=== PATIENT | female | born 1990 ===

== ENCOUNTER → 2020-01-06 08:06 | Outpatient (BNVA) | payer OTHER, SELFPAY | PROVIDERS: PCP Internal Medicine; Referring Provider Internal Medicine; Visit Provider Obstetrics & Gynecology | DX: Z76.89 Persons encountering health services in other specified circumstances (principal) ==

== ENCOUNTER 2020-02-16 14:49 | Outpatient (REF) | payer OTHER, SELFPAY ==
[2020-02-19 15:36] LABS: HPV mRNA E6/E7 rflx Not Detected (Not Detected)
== END 2020-02-16 14:50 | disposition home or self-care (01) ==
LOC: HO.LAB 14:49
PROVIDERS: Visit Provider Obstetrics & Gynecology
DX: Z01.419 Encounter for gynecological examination (general) (routine) without abnormal findings (principal); Z97.5 Presence of (intrauterine) contraceptive device
CPT/HCPCS: 87624; 87625; 88142

== ENCOUNTER 2021-06-15 14:38 | Outpatient (REF) | payer OTHER, SELFPAY ==
[2021-06-16 05:29] LABS: CT PCR NOT DETECTED (Not Detect.); NG PCR NOT DETECTED (Not Detect.)
== END 2021-06-15 14:39 | disposition home or self-care (01) ==
LOC: HO.LAB 14:38
PROVIDERS: PCP Internal Medicine; Visit Provider Advanced Practice Midwife
DX: Z01.411 Encounter for gynecological examination (general) (routine) with abnormal findings (principal); N39.0 Urinary tract infection, site not specified; Z20.2 Contact with and (suspected) exposure to infections with a predominantly sexual mode of transmission
CPT/HCPCS: 81025; 87491; 87591

== ENCOUNTER → 2021-07-26 14:31 | Outpatient (BNVA) | payer OTHER, SELFPAY | PROVIDERS: PCP Internal Medicine; Visit Provider Advanced Practice Midwife | DX: Z30.433 Encounter for removal and reinsertion of intrauterine contraceptive device (principal); R10.2 Pelvic and perineal pain | CPT/HCPCS: 58301; 81025 ==

== ENCOUNTER → 2024-05-06 14:12 | Outpatient (BNVA) | payer OTHER, SELFPAY | PROVIDERS: PCP Internal Medicine; Visit Provider Internal Medicine ==

== ENCOUNTER 2024-05-26 13:02 | Outpatient (REF) | payer OTHER, SELFPAY ==
--- NOTE | ~2024-05-26 | CT_ITS ---
EXAMINATION: CT HEAD WITHOUT CONTRAST CLINICAL INFORMATION: Concussion with loss of consciousness status unknown. Head trauma. COMPARISON: None available. TECHNIQUE: Contiguous axial imaging was performed from the skull base to vertex without intravenous administration of contrast. This CT examination was performed using dose optimization techniques as appropriate, variously including the following: *Automated exposure control *Adjustment of mA and/or kV according to patient size (this includes techniques or standardized protocols for targeted exams where dose is matched to indication/reason for exam; i.e. extremities or head) *Use of iterative reconstruction technique FINDINGS: There is no evidence of intracranial hemorrhage or extra-axial fluid collection. There is no mass effect, or edema. No CT evidence of acute territorial infarct. Ventricles, sulci, and cisterns are normal in size and configuration for patient age. No hydrocephalus. No midline shift. Negative hyperdense MCA sign. Negative insular ribbon sign. No significant white matter abnormality. 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 Normal pituitary. Mild ossification of the anterior falx. Globes and orbital contents image normally. No extracranial soft tissue abnormalities. The paranasal sinuses, mastoid air cells, and tympanic cavities are normally aerated. No suspicious bony abnormalities. There are no acute fractures evident. CT/CT head/brain wo IV con IMPRESSION: No acute intracranial pathology. No fracture evident. Electronically signed by: Mani Massey MD 05/26/2024 03:29 PM MALIK
--- OUTSIDE RECORDS SUMMARY | 2024-05-26 14:51 | XMS_ITS | Clinical Summary ---
Author Organization [facility] Address [address] [place] [id number] Phone Care Team Providers Care Patient Representative Name Role Phone Ryan Yao Primary Care Provider [phone] Immunizations Immunization Administration Dates Next Due DTP 03/10/1993, 0,03/01/1989,1988,1988 Hep B, ped/adol 03/19/2001,11/09/2000,08/02/1999 Hib (PRP-T) 11/21/1989 MMR 08/02/1999,08/23/1989 OPV 03/10/1993, 0,1988,1988 Td (adult) (MBL), 2 Lf tetan us toxoid, PF, adsorbed 08/02/1999 Varicella 01/18/1996 Family History Relation Name Status Comments Father Alive Father: Asthma, Allergies Mother Alive Mother: Anemia Other uncle: Sudden d eath/CT under age 55 Sister Alive Sister: Alive a nd well Social History Tobacco Use Types Packs/Day Years Used Date Smoking Tobacco: Never Assessed Comments Unknown Sex and Gender Information Value Date Recorded Sex Assigned at Not on file Legal Sex Female 4:24 PM EDT Gender Identity Not on file Sexual Orientation Not on file Plan of Treatment Health Maintenance Due Date Last Done Comments DTaP,Tdap,and Td Vaccines (6 - Tdap) 08/07/1999 08/02/1999, 03/10/1993, 02/07/1990, Additional history exists Varicella Vaccines (2 of 2 - 2-dose childhood series) 08/30/1999 01/18/1996 Influenza Vaccines (#1) 2023 COVID-19 Vaccine ( season) 2023 HIB Vaccines Completed 11/21/1989 IPV Vaccines Completed 03/10/1993, 10/1989, 1988, Additional history exists MMR Vaccines Completed 08/02/1999, 08/23/1989 Hepatitis B Vaccines Completed 03/19/2001, 11/09/2000, 08/02/1999 HPV Vaccines Aged Out No longer eligi ble based on patient's age to complete this topic Hepatitis A Vaccines Aged Out No long er eligible based on patient's age to complete this topic Men B Vaccine Aged Out No longer elig ible based on patient's age to complete this topic Meningococcal Vaccine Aged Out No cristian guicho eligible based on patient's age to complete this topic Pneumococcal Vaccine Aged Out No long er eligible based on patient's age to complete this topic Care Teams Patient Representative Relationship Specialty Start Date End Date Ryan Yao [address] [place] [id number] PCP - General 11/10/16
--- OUTSIDE RECORDS SUMMARY | 2024-05-26 14:51 | XMS_ITS | Encounter Summary ---
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 Name Role Phone Ryan Yao Primary Care Provider [phone] Encounter Details Date Type Department Care Team (Late st Contact Info) Description 11/16/2016 Conversion Encounter [facility] [place] [address] [place] [address] Social History Tobacco Use Types Packs/Day Years Used Date Smoking Tobacco: Never Assessed Comments Unknown Sex and Gender Information Value Date Recorded Sex Assigned at Not on file Legal Sex Female 4:24 PM EDT Gender Identity Not on file Sexual Orientation Not on file documented as of this encounter Plan of Treatment Not on file documented as of this encounter Visit Diagnoses Not on filedocumented in this encounter Care Teams Mold Filler And Drainer Relationship Specialty Start Date End Date Ryan Yao [address] [place] [address] PCP - General 11/10/16 documented as of this encounter
== END 2024-05-26 13:03 | disposition home or self-care (01) ==
LOC: HO.CT 13:02
PROVIDERS: PCP Internal Medicine; Visit Provider Internal Medicine
DX: S06.0XAA Concussion with loss of consciousness status unknown, initial encounter (principal)
CPT/HCPCS: 70450

== ENCOUNTER → 2024-05-26 13:05 | Outpatient (BNV) | payer OTHER, SELFPAY | PROVIDERS: PCP Internal Medicine; Visit Provider Radiology Diagnostic Radiology | DX: S06.0XAA Concussion with loss of consciousness status unknown, initial encounter (principal) | CPT/HCPCS: 70450 ==